=== PATIENT | male | born 2005 | race Caucasian/White ===

== ENCOUNTER 2025-06-29 21:58 | Emergency (ER) | payer BC ==
[~2025-06-29] VITALS: Ht 180.3 cm; Wt 72.6 kg
[2025-06-30] MEDS ORDERED: RX Prepack 6 Tabs Oxycodone 5mg UD ONE (00:10)
== END 2025-06-30 00:38 | disposition home or self-care (01) ==
LOC: ER 21:58
DX: S02.609A Fracture of mandible, unspecified, initial encounter for closed fracture (principal); W22.8XXA Striking against or struck by other objects, initial encounter
CPT/HCPCS: 70450; 70486; 72125; 99283-25; A9270